=== PATIENT | male | born 1990 | race Two or more races ===

== ENCOUNTER 2019-09-06 07:16 | Emergency (ER) | payer SELFPAY ==
[~2019-09-06] VITALS: Ht 175.3 cm; Wt 86.2 kg
[2019-09-06 07:22] VITALS: BP 121/76
[2019-09-06] MEDS ORDERED: ACETAMINOPHEN ES 500 MG TABLET ONE (07:46)
--- NOTE | 2019-09-06 07:52 | NUR ---
PATIENT AWAKE ALERT NON DISTRESS ,DC HOME INSTRUCTION GIVEN AGREES TO CALL PMD IN 2 DAYS VERBLAIZED UNDERSTANDING
[2019-09-06] MEDS ORDERED: ACETAMINOPHEN ES 500 MG TABLET PO ONE (08:00)
== END 2019-09-06 07:52 | disposition home or self-care (01) ==
LOC: ER 07:23
DX: J06.9 Acute upper respiratory infection, unspecified (principal); J45.909 Unspecified asthma, uncomplicated
CPT/HCPCS: 71045-TC